=== PATIENT | male | born 1955 ===

== ENCOUNTER 2018-09-27 16:47 | Emergency (ER) | payer SELFPAY ==
[~2018-09-27 16:47] MED LIST: Etomidate 2 MG/ML 20 ML SDV IVPUSH ONE
[2018-09-27] MEDS ORDERED: Sodium Chloride 0.9% 10 ML Syringe FLUSH PRN ×2 (16:49→16:59)
[2018-09-27] MEDS ORDERED: Sodium Chloride 0.9% 2.5 ML Syringe FLUSH PRN ×2 (16:49→16:59)
[2018-09-27] MEDS ORDERED: Succinylcholine 200 MG/10 ML MDV IV ONE (16:50)
[2018-09-27] MEDS ORDERED: Sodium Chloride 0.9% 1,000 ML IV ONE ×2 (16:54→17:00)
--- NOTE | 2018-09-27 17:10 | EDM.PDOC ---
ED HPI GENERAL MEDICAL PROBLEM - General Stated Complaint: AMB Time Seen by Provider: 09/27/18 17:09 - History of Present Illness INITIAL COMMENTS - FREE TEXT/NARRATIVE: HISTORY AND PHYSICAL: History of present illness: Patient is 62-year-old white male with an unknown past medical history presents in complete heart block with heart rate of 20 he was semi-conscious with paramedics who initiated advanced cardiac life support in transcutaneous pacemaking he received Versed 2.5 mg in field on arrival here he is being Pacers unclear capture and he remained semi-conscious with a palpable pulse of 20-30 manual blood pressure at a systolic of 90 patient reported the first responders some upper back and vague chest discomfort was also some history of similar episodes over the last several weeks of dizziness and near syncope Review of systems: As per history of present illness and below otherwise all systems reviewed and negative. Past medical history: As per history of present illness and as reviewed below otherwise noncontributory. Surgical history: As per history of present illness and as reviewed below otherwise noncontributory. Social history: No reported history of drug or alcohol abuse. Family history: As per history of present illness and as reviewed below otherwise noncontributory. Physical exam: HCTZ H med. Pupils are reactive lungs are clear to auscultation heart S1-S2 bradycardic abdomen soft nondistended nontender pelvis stable extremities are benign neurologically patient's lethargic does follow commands and move all extremities Diagnostics: CBC CMP troponin PT/INR chest x-ray EKG Therapeutics: Patient was intubated via rapid sequence with 8-0 ET tube breath sounds are equal bilaterally colorimetric change verified chest x-ray pending Impression: #1 bradycardic dysrhythmia Definitive disposition and diagnosis as appropriate pending reevaluation and review of above. ED ROS GENERAL - Review of Systems Review Of Systems: ROS reveals no pertinent complaints other than HPI. ED EXAM, GENERAL - Physical Exam Exam: See Below (See dictation) Course - Orders/Labs/Meds Orders: Active Orders 24 hr Category Date Time Status Cardiac Monitoring [RC] . DIRECTED Care 09/27/18 16:52 Active EKG Documentation Completion [RC] STAT Care 09/27/18 16:49 Active Insert Urinary Catheter [OM.PC] Q24H Care 09/27/18 17:00 Ordered Urinary Catheter Assessment [RC] ASDIRECTED Care 09/27/18 16:59 Active Chest 1V Frontal [CR] Stat Exams 09/27/18 16:49 Ordered COMPREHENSIVE METABOLIC PN,CMP [CHEM] Stat Lab 09/27/18 16:45 Received D-DIMER QUANTITATIVE [COAG] Stat Lab 09/27/18 16:52 Ordered INR,PT,PROTHROMBIN TIME [COAG] Stat Lab 09/27/18 16:45 Received TROPONIN I [CHEM] Stat Lab 09/27/18 16:45 Received Sodium Chloride 0.9% [Normal Saline] 1,000 ml Med 09/27/18 16:54 Active IV STAT Sodium Chloride 0.9% [Saline Flush] Med 09/27/18 16:49 Active 10 ml FLUSH ASDIRECTED PRN Sodium Chloride 0.9% [Saline Flush] Med 09/27/18 16:59 Active 10 ml FLUSH ASDIRECTED PRN Sodium Chloride 0.9% [Saline Flush] Med 09/27/18 16:49 Active 2.5 ml FLUSH ASDIRECTED PRN Sodium Chloride 0.9% [Saline Flush] Med 09/27/18 16:59 Active 2.5 ml FLUSH ASDIRECTED PRN Nasogastric Orogastric Tube Insertion [OM.PC] Stat Oth 09/27/18 16:59 Ordered Saline Lock Insert [OM.PC] Stat Oth 09/27/18 16:49 Ordered Saline Lock Insert [OM.PC] Stat Oth 09/27/18 16:59 Ordered Medication Orders Sodium Chloride (Normal Saline) 1,000 mls @ 999 mls/hr IV STAT ONE Stop: 09/27/18 17:54 Sodium Chloride (Saline Flush) 10 ml FLUSH ASDIRECTED PRN PRN Reason: Keep Vein Open Sodium Chloride (Saline Flush) 2.5 ml FLUSH ASDIRECTED PRN PRN Reason: Keep Vein Open Sodium Chloride (Saline Flush) 10 ml FLUSH ASDIRECTED PRN PRN Reason: Keep Vein Open Sodium Chloride (Saline Flush) 2.5 ml FLUSH ASDIRECTED PRN PRN Reason: Keep Vein Open Labs: Laboratory Tests 09/27/18 Range/Units 16:45 WBC 14.12 H (4.0-11.0) K/uL RBC 4.32 L (4.50-5.90) M/uL Hgb 13.5 (13.0-17.0) g/dL Hct 39.8 (38.0-50.0) % MCV 92.1 (80.0-98.0) fL MCH 31.3 (27.0-32.0) pg MCHC 33.9 (31.0-37.0) g/dL RDW Std Deviation 44.6 (28.0-62.0) fl RDW Coeff of Maliha 13 (11.0-15.0) % Plt Count 192 (150-400) K/uL MPV 11.80 (7.40-12.00) fL Neut % (Auto) 80.1 H (48.0-80.0) % Lymph % (Auto) 14.8 L (16.0-40.0) % [place] % (Auto) 3.3 (0.0-15.0) % Eos % (Auto) 1.4 (0.0-7.0) % Baso % (Auto) 0.4 (0.0-1.5) % Neut # (Auto) 11.3 H (1.4-5.7) K/uL Lymph # (Auto) 2.1 (0.6-2.4) K/uL [place] # (Auto) 0.5 (0.0-0.8) K/uL Eos # (Auto) 0.2 (0.0-0.7) K/uL Baso # (Auto) 0.1 (0.0-0.1) K/uL Nucleated RBC % 0.0 /100WBC Nucleated RBCs # 0 K/uL Meds: Medications Generic Name Dose Route Start Last Admin Trade Name Freq PRN Reason Stop Dose Admin Sodium Chloride 1,000 mls @ 999 mls/hr 09/27/18 16:54 Normal Saline IV 09/27/18 17:54 STAT ONE Sodium Chloride 10 ml 09/27/18 16:49 Saline Flush FLUSH ASDIRECTED PRN Keep Vein Open Sodium Chloride 2.5 ml 09/27/18 16:49 Saline Flush FLUSH ASDIRECTED PRN Keep Vein Open Sodium Chloride 10 ml 09/27/18 16:59 Saline Flush FLUSH ASDIRECTED PRN Keep Vein Open Sodium Chloride 2.5 ml 09/27/18 16:59 Saline Flush FLUSH ASDIRECTED PRN Keep Vein Open Departure - Departure Time of Disposition: 17:09 Disposition: DC/Tfer to Acute Hospital 02 Condition: Critical Clinical Impression: Heart block atrioventricular - Discharge Information Referrals: PCP,Unknown [Primary Care Provider] -
[2018-09-27 17:36] LABS: CHLORIDE,CL 102 mmol/L (98-107); SODIUM,NA 134 mmol/L (136-148)
--- NOTE | 2018-09-27 18:07 | CR ---
Bradycardia. Technique: Portable chest. Comparison: No comparison studies are available. Findings: Endotracheal tube is 3.7 cm from the elina. Low lung volumes.Normal cardiac mediastinal silhouette. Lungs are clear of an acute airspace or interstitial process. Right hemidiaphragm mildly elevated. IMPRESSION: 1. No acute pulmonary process. Dictated by Aylin Lozada MD @ Sep 27 2018 6:05PM Signed by Dr. Aylin Lozada @ Sep 27 2018 6:06PM
[2018-09-27] MEDS ORDERED: Atropine 0.1 MG/ML 10 ML Syringe IVPUSH ONE (20:02)
[2018-09-27] MEDS ORDERED: Rocuronium 50 MG/5 ML Vial IVPUSH ONE (20:02)
== END 2018-09-27 17:35 ==
LOC: MW.ED 16:47
DX: I44.2 Atrioventricular block, complete (principal); I49.8 Other specified cardiac arrhythmias
CPT/HCPCS: 31500; 36415; 71045; 80053; 84484; 85025; 85379; 85610; 96361; 96365; 96374; 96375; 99291; J0330; J0461; J2704; J3490; J7040